=== PATIENT | female | born 1955 | race Caucasian/White ===

== ENCOUNTER 2018-09-21 13:18 | Emergency (ER) | payer OTHER ==
[~2018-09-21] VITALS: Ht 152.4 cm; Wt 48.6 kg
[2018-09-21 14:37] LABS: HEMATOCRIT. 36.9 % (36.0-48.0); HEMOGLOBIN. 12.9 g/dL (12.0-16.0); LYMPHOCYTES % 38.9 % (20.0-50.0); MEAN CORPUSCULAR HEMOGLOBIN 33.4 pg (28.0-32.0); MEAN CORPUSCULAR VOLUME 95.7 fL (81.0-99.0); MEAN PLATELET VOLUME 8.9 fl (7.4-10.4); MONOCYTES % 4.3 % (2.0-8.0); NEUTROPHILS % 50.8 % (40.0-76.0); PLATELET 327 x1000/uL (130-400); RED BLOOD CELL COUNT 3.86 mill/uL (4.2-5.4); RED CELL DISTRIBUTION WIDTH 13.1 % (11.6-14.6)
[2018-09-21 14:44] LABS: CHLORIDE 111 mEq/L (98-107); PROTHROMBIN TIME 10.8 sec (9.6-11.0)
[2018-09-21 14:47] LABS: ETHANOL BLOOD < 10 mg/dL
[2018-09-21 14:50] LABS: LDL CHOLESTEROL 124 mg/dL (5-100)
[2018-09-21] MEDS ORDERED: IOHEXOL-350 100 ML BOTTLE ONE (14:52)
[2018-09-21] MEDS ORDERED: ASPIRIN 325MG TABLET PO ONE (16:30)
[2018-09-21 16:45] VITALS: BP 118/52
== END 2018-09-21 17:24 | disposition left against medical advice (07) ==
LOC: EDSEX 13:18 → ER 13:18 → CANBEDREQ 16:15 → ER 17:24
DX: I63.9 Cerebral infarction, unspecified (principal); I65.1 Occlusion and stenosis of basilar artery; I65.22 Occlusion and stenosis of left carotid artery; R20.0 Anesthesia of skin; E78.00 Pure hypercholesterolemia, unspecified; I10 Essential (primary) hypertension; F17.200 Nicotine dependence, unspecified, uncomplicated; Z90.49 Acquired absence of other specified parts of digestive tract; Z98.890 Other specified postprocedural states
CPT/HCPCS: 36415; 70450; 70496; 70498; 71045; 80053; 80320; 83721; 84484; 85025; 85610; 93005; 99284; Q9967; G0480

== ENCOUNTER 2019-10-10 16:36 | Inpatient (IN) | payer MEDICAID, OTHER ==
[~2019-10-10] VITALS: Ht 152.4 cm; Wt 56.2 kg
[2019-10-10 17:46] LABS: BASOPHILS % 1.1 % (0.0-2.0); EOSINOPHILS % 2.7 % (0.0-5.0); HEMATOCRIT. 41.9 % (36.0-48.0); HEMOGLOBIN. 14.5 g/dL (12.0-16.0); LYMPHOCYTES % 32.7 % (20.0-50.0); MEAN CORPUSCULAR HEMOGLOBIN 32.1 pg (28.0-32.0); MEAN CORPUSCULAR VOLUME 92.8 fL (81.0-99.0); MEAN PLATELET VOLUME 9.4 fl (7.4-10.4); MONOCYTES % 6.1 % (2.0-8.0); NEUTROPHILS % 57.4 % (40.0-76.0); PLATELET 399 x1000/uL (130-400); RED BLOOD CELL COUNT 4.51 mill/uL (4.2-5.4); RED CELL DISTRIBUTION WIDTH 13.9 % (11.6-14.6)
[2019-10-10 17:47] LABS: CHLORIDE 107 mEq/L (98-107)
[2019-10-10 17:52] LABS: ETHANOL BLOOD < 10 mg/dL
[2019-10-10 17:56] LABS: PROTHROMBIN TIME 10.5 sec (9.6-11.0)
[2019-10-10] MEDS ORDERED: HYDR12.54 PO (18:11)
[2019-10-10] MEDS ORDERED: LOSA100T32 MT (18:11)
[2019-10-10] MEDS ORDERED: MELO-106 MT (18:11)
[2019-10-10] MEDS ORDERED: PENT400T16 PO (18:11)
[2019-10-10] MEDS ORDERED: ASPI-1497 MT (18:11)
[2019-10-10] MEDS ORDERED: ACETAMINOPHEN 325MG TABLET PO PRN (19:30)
[2019-10-10] MEDS ORDERED: ONDANSETRON HCL 4MG/2ML INJ IV PRN (19:30)
[2019-10-10] MEDS ORDERED: ASPIRIN 81MG TABLET PO NR (19:30)
[2019-10-10 20:25] VITALS: BP 147/45
[2019-10-10] MEDS: ATORVASTATIN CALCIUM 40MG TABLET PO SCH (22:32)
[2019-10-10] MEDS: ENOXAPARIN 30MG/0.3ML SYR SUBCUT SCH (22:36)
[2019-10-11] VITALS: BP 132/52
[2019-10-11 04:00] VITALS: BP 119/54
[2019-10-11 06:29] LABS: BASOPHILS % 1.8 % (0.0-2.0); EOSINOPHILS % 4.6 % (0.0-5.0); HEMATOCRIT. 36.4 % (36.0-48.0); HEMOGLOBIN. 12.7 g/dL (12.0-16.0); MEAN CORPUSCULAR HEMOGLOBIN 32.2 pg (28.0-32.0); MEAN CORPUSCULAR VOLUME 92.2 fL (81.0-99.0); MEAN PLATELET VOLUME 9.6 fl (7.4-10.4); MONOCYTES % 7.3 % (2.0-8.0); NEUTROPHILS % 47.3 % (40.0-76.0); PLATELET 323 x1000/uL (130-400); RED BLOOD CELL COUNT 3.95 mill/uL (4.2-5.4); RED CELL DISTRIBUTION WIDTH 13.7 % (11.6-14.6)
[2019-10-11 06:39] LABS: CLARITY URINE CLEAR (CLEAR); COLOR URINE YELLOW (YELLOW); KETONES URINE NEGATIVE (NEGATIVE); LEUKOCYTE ESTERASE URINE NEGATIVE (NEGATIVE); NITRITE URINE NEGATIVE (NEGATIVE); OCCULT BLOOD URINE NEGATIVE (NEGATIVE); PROTEIN URINE TRACE (NEGATIVE); SPECIFIC GRAVITY URINE 1.016 (1.005-1.030)
[2019-10-11 07:06] LABS: *AMPHETAMINES SCREEN URINE NEGATIVE (NEGATIVE); *BARBITURATES SCREEN URINE NEGATIVE (NEGATIVE); *BENZODIAZEPINES SCREEN URINE NEGATIVE (NEGATIVE)
[2019-10-11 07:07] LABS: *COCAINE SCREEN URINE NEGATIVE (NEGATIVE); CANNABINOID URINE SCREEN NEGATIVE (NEGATIVE); METHADONE URINE SCREEN NEGATIVE (NEGATIVE); OPIATES URINE SCREEN NEGATIVE (NEGATIVE); PHENCYCLIDINE URINE SCREEN NEGATIVE (NEGATIVE)
[2019-10-11] MEDS ORDERED: PENTOXIFYLLINE 400MG TABLET PO SCH (07:15)
[2019-10-11 07:32] LABS: CHLORIDE 110 mEq/L (98-107)
[2019-10-11 07:47] LABS: CREATINE KINASE MB FRACTION < 1.0 ng/mL (0.5-3.6)
[2019-10-11 07:48] LABS: CREATINE KINASE 31 IU/L (26-192)
[2019-10-11 08:00] VITALS: BP 89/39
[2019-10-11] MEDS ORDERED: MIDODRINE HCL 5MG TABLET PO SCH (08:00)
[2019-10-11] MEDS ORDERED: SODIUM CHLORIDE 0.9% 1000ML BAG (SEPSIS BOLUS) IV ONE (08:00)
[2019-10-11] MEDS ORDERED: SODIUM CHLORIDE 0.9% 500 ML IV ONE ×2 (08:04→12:45)
[2019-10-11] MEDS ORDERED: HYDROCHLOROTHIAZIDE 12.5MG CAPSULE PO SCH (09:00)
[2019-10-11] MEDS ORDERED: LOSARTAN POTASSIUM 100 MG TABLET PO SCH (09:00)
[2019-10-11] MEDS: ENOXAPARIN 30MG/0.3ML SYR SUBCUT SCH (09:12)
[2019-10-11] MEDS: ASPIRIN 81MG TABLET PO SCH (09:12)
[2019-10-11] MEDS: MELOXICAM 7.5MG TABLET PO SCH (09:13)
[2019-10-11 12:00] VITALS: BP 81/43
[2019-10-11] MEDS: SODIUM CHLORIDE 0.9% 1,000 ML IV SCH (12:38)
[2019-10-11] MEDS ORDERED: MIDODRINE HCL 5MG TABLET PO NR ×2 (12:45)
[2019-10-11 16:00] VITALS: BP 93/49
[2019-10-11] MEDS: MIDODRINE HCL 5MG TABLET PO SCH (16:20)
[2019-10-11 20:00] VITALS: BP 94/44
[2019-10-11] MEDS: ATORVASTATIN CALCIUM 40MG TABLET PO SCH (20:53)
[2019-10-12] VITALS (7 sets, daily range): BP systolic 90–104; BP diastolic 33–47
[2019-10-12] MEDS: SODIUM CHLORIDE 0.9% 1,000 ML IV SCH ×2 (02:01→17:29)
[2019-10-12 07:24] LABS: BASOPHILS % 1.4 % (0.0-2.0); EOSINOPHILS % 3.3 % (0.0-5.0); HEMOGLOBIN. 11.4 g/dL (12.0-16.0); LYMPHOCYTES % 36.3 % (20.0-50.0); MEAN CORPUSCULAR HEMOGLOBIN 32.8 pg (28.0-32.0); MEAN CORPUSCULAR VOLUME 94.9 fL (81.0-99.0); MEAN PLATELET VOLUME 9.1 fl (7.4-10.4); MONOCYTES % 5.6 % (2.0-8.0); NEUTROPHILS % 53.4 % (40.0-76.0); PLATELET 279 x1000/uL (130-400); RED BLOOD CELL COUNT 3.48 mill/uL (4.2-5.4); RED CELL DISTRIBUTION WIDTH 13.6 % (11.6-14.6)
[2019-10-12 07:51] LABS: CHLORIDE 116 mEq/L (98-107)
[2019-10-12] MEDS: MELOXICAM 7.5MG TABLET PO SCH (08:54)
[2019-10-12] MEDS: MIDODRINE HCL 5MG TABLET PO SCH ×3 (08:55→17:28)
[2019-10-12] MEDS: ASPIRIN 81MG TABLET PO SCH (08:55)
[2019-10-12] MEDS: ENOXAPARIN 40MG/0.4ML SYR SUBCUT SCH (08:55)
[2019-10-12] MEDS: ATORVASTATIN CALCIUM 40MG TABLET PO SCH (20:43)
[2019-10-13] VITALS: BP 98/41
[2019-10-13 04:00] VITALS: BP 90/46
[2019-10-13] MEDS: SODIUM CHLORIDE 0.9% 1,000 ML IV SCH ×2 (07:54→17:04)
[2019-10-13 08:00] VITALS: BP 92/41
[2019-10-13] MEDS: ASPIRIN 81MG TABLET PO SCH (09:02)
[2019-10-13] MEDS: CLOPIDOGREL 75MG TABLET PO SCH (09:02)
[2019-10-13] MEDS: MELOXICAM 7.5MG TABLET PO SCH (09:02)
[2019-10-13] MEDS: MIDODRINE HCL 5MG TABLET PO SCH ×3 (09:02→17:03)
[2019-10-13] MEDS: ENOXAPARIN 40MG/0.4ML SYR SUBCUT SCH (09:02)
[2019-10-13 12:00] VITALS: BP 110/32
[2019-10-13] MEDS ORDERED: IOHEXOL-350 100 ML BOTTLE ONE (14:40)
[2019-10-13 16:00] VITALS: BP 113/51
[2019-10-13 20:00] VITALS: BP 113/34
[2019-10-13] MEDS: ATORVASTATIN CALCIUM 40MG TABLET PO SCH (20:51)
[2019-10-14] VITALS (8 sets, daily range): BP systolic 80–117; BP diastolic 25–69
[2019-10-14] MEDS: SODIUM CHLORIDE 0.9% 1,000 ML IV SCH (04:21)
[2019-10-14 06:44] LABS: CHLORIDE 115 mEq/L (98-107)
[2019-10-14 06:48] LABS: BASOPHILS % 0.8 % (0.0-2.0); EOSINOPHILS % 2.2 % (0.0-5.0); HEMATOCRIT. 32.6 % (36.0-48.0); HEMOGLOBIN. 11.4 g/dL (12.0-16.0); LYMPHOCYTES % 28.8 % (20.0-50.0); MEAN CORPUSCULAR VOLUME 91.6 fL (81.0-99.0); MONOCYTES % 6.5 % (2.0-8.0); NEUTROPHILS % 61.7 % (40.0-76.0); PLATELET 265 x1000/uL (130-400); RED BLOOD CELL COUNT 3.56 mill/uL (4.2-5.4); RED CELL DISTRIBUTION WIDTH 13.5 % (11.6-14.6)
[2019-10-14] MEDS: ENOXAPARIN 40MG/0.4ML SYR SUBCUT SCH (08:02)
[2019-10-14] MEDS: CLOPIDOGREL 75MG TABLET PO SCH (08:02)
[2019-10-14] MEDS ORDERED: POTASSIUM CHLORIDE 20MEQ TABLET SR PO NR (09:00)
[2019-10-14] MEDS: ASPIRIN 81MG TABLET PO SCH (09:59)
[2019-10-14] MEDS: MIDODRINE HCL 5MG TABLET PO SCH ×3 (09:59→17:34)
[2019-10-14] MEDS ORDERED: MAGNESIUM 2 G PREMIX 50 ML IV NR (10:00)
[2019-10-14] MEDS: MELOXICAM 15 MG TABLET PO SCH (12:37)
[2019-10-14] MEDS: DEXT 5%/0.45% NACL 1000ML 1,000 ML IV SCH (12:38)
[2019-10-14] MEDS: ATORVASTATIN CALCIUM 40MG TABLET PO SCH (21:09)
[2019-10-15] VITALS (12 sets, daily range): BP systolic 85–151; BP diastolic 42–64
[2019-10-15] MEDS: DEXT 5%/0.45% NACL 1000ML 1,000 ML IV SCH ×3 (01:12→19:18)
[2019-10-15] MEDS: MELOXICAM 15 MG TABLET PO SCH (09:17)
[2019-10-15] MEDS: CLOPIDOGREL 75MG TABLET PO SCH (09:18)
[2019-10-15] MEDS: MIDODRINE HCL 5MG TABLET PO SCH ×3 (09:18→15:36)
[2019-10-15] MEDS: ASPIRIN 81MG TABLET PO SCH (09:18)
[2019-10-15] MEDS: ENOXAPARIN 40MG/0.4ML SYR SUBCUT SCH (09:19)
[2019-10-15 10:29] LABS: CHLORIDE 114 mEq/L (98-107)
[2019-10-15] MEDS ORDERED: BACITRACIN 15GM TUBE TOP ONE (12:38)
[2019-10-15] MEDS ORDERED: HEPARIN SODIUM 1,000 UNIT/1ML VIAL IV ONE (12:39)
[2019-10-15] MEDS ORDERED: BUPIVACAINE HCL/PF 0.5% (5MG/ML) 10ML ONE (12:39)
[2019-10-15] MEDS ORDERED: LIDOCAINE HCL 1% 20ML VIAL (Pyxis) INJ ONE (12:39)
[2019-10-15] MEDS ORDERED: THROMBIN (BOVINE) 5000 UNITS/VIAL TOP ONE (12:40)
[2019-10-15] MEDS ORDERED: BACITRACIN 50,000 UNITS/VIAL ONE (12:40)
[2019-10-15] MEDS ORDERED: FENTANYL CITRATE/PF 50MCG/ML 2ML VIAL ONE (13:00)
[2019-10-15] MEDS ORDERED: NEOSTIGMINE METHYLSULFATE 1MG/ML 10 ML VIAL ONE (13:00)
[2019-10-15] MEDS ORDERED: GLYCOPYRROLATE 0.2 MG/ML 2ML VIAL ONE ×2 (13:01→14:44)
[2019-10-15] MEDS ORDERED: MIDAZOLAM HCL 2 MG/2 ML VIAL ONE (13:01)
[2019-10-15] MEDS ORDERED: ROCURONIUM BROMIDE 10MG/ML VIAL 5ML IV ONE (13:01)
[2019-10-15] MEDS ORDERED: PROPOFOL 200MG/20ML VIAL IV ONE (13:01)
[2019-10-15] MEDS ORDERED: DEXAMETHASONE 4MG/ML 1ML VIAL ONE (13:02)
[2019-10-15] MEDS ORDERED: ONDANSETRON HCL 4MG/2ML INJ ONE (13:02)
[2019-10-15] MEDS ORDERED: NICARDIPINE 50 MG in SODIUM CHLORIDE 0.9% 230 ML IV PRN (13:30)
[2019-10-15] MEDS ORDERED: HYDROMORPHONE HCL/PF 2MG/ML CPJ IV PRN (14:00)
[2019-10-15] MEDS ORDERED: LABETALOL 5MG/ML SYR 20 MG/4 ML SYRINGE IV PRN (14:00)
[2019-10-15] MEDS ORDERED: ONDANSETRON HCL 4MG/2ML INJ IV PRN (14:00)
[2019-10-15] MEDS ORDERED: MEPERIDINE HCL/PF 25MG/ML CPJ IV PRN (14:00)
[2019-10-15] MEDS ORDERED: SODIUM CHLORIDE 0.9% 10ML VIAL ONE (14:50)
[2019-10-15] MEDS ORDERED: HEPARIN 1000 UNITS/ML 10ML ONE (14:50)
[2019-10-15] MEDS ORDERED: LABETALOL HCL 5MG/ML VIAL 20ML IV ONE (14:50)
[2019-10-15] MEDS ORDERED: CEFAZOLIN SODIUM 1000MG/VIAL ONE (14:50)
[2019-10-15] MEDS ORDERED: LIDOCAINE HCL/PF 1% 10 MG/ML 5ML VIAL ONE (14:50)
[2019-10-15] MEDS ORDERED: HYDRALAZINE 20MG/ML VIAL ONE (14:55)
[2019-10-15] MEDS: MORPHINE SULFATE 4 MG/ML CPJ (NOT FOR IM USE) IV PRN ×2 (16:17→22:39)
[2019-10-15] MEDS: ATORVASTATIN CALCIUM 40MG TABLET PO SCH (21:53)
[2019-10-16] VITALS (45 sets, daily range): BP systolic 79–128; BP diastolic 36–93
[2019-10-16] MEDS: DEXT 5%/0.45% NACL 1000ML 1,000 ML IV SCH ×2 (00:45→06:37)
[2019-10-16 00:52] LABS: HEMATOCRIT 33.9 % (36.0-48.0); HEMOGLOBIN 11.6 g/dL (12.0-16.0); MEAN CORPUSCULAR HEMOGLOBIN 32.1 pg (28.0-32.0); MEAN CORPUSCULAR VOLUME 93.7 fL (81.0-99.0); PLATELET 257 x1000/uL (130-400); RED BLOOD CELL COUNT 3.61 mill/uL (4.2-5.4); RED CELL DISTRIBUTION WIDTH 13.5 % (11.6-14.6)
[2019-10-16 05:52] LABS: BASOPHILS % 0.1 % (0.0-2.0); HEMATOCRIT. 32.4 % (36.0-48.0); HEMOGLOBIN. 11.3 g/dL (12.0-16.0); LYMPHOCYTES % 7.9 % (20.0-50.0); MEAN CORPUSCULAR HEMOGLOBIN 32.6 pg (28.0-32.0); MEAN CORPUSCULAR VOLUME 93.4 fL (81.0-99.0); MONOCYTES % 3.1 % (2.0-8.0); NEUTROPHILS % 88.9 % (40.0-76.0); PLATELET 252 x1000/uL (130-400); RED BLOOD CELL COUNT 3.47 mill/uL (4.2-5.4); RED CELL DISTRIBUTION WIDTH 13.6 % (11.6-14.6)
[2019-10-16 05:58] LABS: CHLORIDE 111 mEq/L (98-107)
[2019-10-16] MEDS: MELOXICAM 15 MG TABLET PO SCH (09:00)
[2019-10-16] MEDS: MIDODRINE HCL 5MG TABLET PO SCH ×3 (09:00→16:21)
[2019-10-17] VITALS (31 sets, daily range): BP systolic 87–125; BP diastolic 27–75
[2019-10-17] MEDS: ATORVASTATIN CALCIUM 40MG TABLET PO SCH ×2 (00:17→20:28)
[2019-10-17 05:20] LABS: BASOPHILS % 0.4 % (0.0-2.0); HEMATOCRIT. 27.5 % (36.0-48.0); HEMOGLOBIN. 9.6 g/dL (12.0-16.0); LYMPHOCYTES % 33.4 % (20.0-50.0); MEAN CORPUSCULAR HEMOGLOBIN 32.6 pg (28.0-32.0); MEAN CORPUSCULAR VOLUME 93.3 fL (81.0-99.0); MEAN PLATELET VOLUME 10.1 fl (7.4-10.4); MONOCYTES % 7.9 % (2.0-8.0); NEUTROPHILS % 57.3 % (40.0-76.0); PLATELET 219 x1000/uL (130-400); RED BLOOD CELL COUNT 2.95 mill/uL (4.2-5.4); RED CELL DISTRIBUTION WIDTH 13.9 % (11.6-14.6)
[2019-10-17 05:32] LABS: CHLORIDE 115 mEq/L (98-107)
[2019-10-17] MEDS: DEXT 5%/0.45% NACL 1000ML 1,000 ML IV SCH ×2 (06:24→18:09)
[2019-10-17] MEDS: CLOPIDOGREL 75MG TABLET PO SCH (08:13)
[2019-10-17] MEDS: MELOXICAM 15 MG TABLET PO SCH (08:13)
[2019-10-17] MEDS: MIDODRINE HCL 5MG TABLET PO SCH ×3 (08:14→18:08)
[2019-10-18] VITALS (14 sets, daily range): BP systolic 97–168; BP diastolic 40–65
[2019-10-18 05:42] LABS: CHLORIDE 116 mEq/L (98-107)
[2019-10-18 05:43] LABS: BASOPHILS % 0.7 % (0.0-2.0); EOSINOPHILS % 1.7 % (0.0-5.0); HEMATOCRIT. 26.5 % (36.0-48.0); HEMOGLOBIN. 9.2 g/dL (12.0-16.0); LYMPHOCYTES % 27.2 % (20.0-50.0); MEAN CORPUSCULAR HEMOGLOBIN 32.7 pg (28.0-32.0); MEAN CORPUSCULAR VOLUME 93.8 fL (81.0-99.0); MEAN PLATELET VOLUME 10.3 fl (7.4-10.4); MONOCYTES % 7.9 % (2.0-8.0); NEUTROPHILS % 62.5 % (40.0-76.0); PLATELET 218 x1000/uL (130-400); RED BLOOD CELL COUNT 2.83 mill/uL (4.2-5.4)
[2019-10-18] MEDS: DEXT 5%/0.45% NACL 1000ML 1,000 ML IV SCH ×2 (06:22→18:24)
[2019-10-18] MEDS: MELOXICAM 15 MG TABLET PO SCH (08:24)
[2019-10-18] MEDS: CLOPIDOGREL 75MG TABLET PO SCH (08:24)
[2019-10-18] MEDS: MIDODRINE HCL 5MG TABLET PO SCH ×3 (08:25→17:38)
[2019-10-18] MEDS: ATORVASTATIN CALCIUM 40MG TABLET PO SCH (20:40)
[2019-10-19] VITALS: BP 106/56
[2019-10-19 04:00] VITALS: BP 102/59
[2019-10-19 07:28] LABS: BASOPHILS % 0.7 % (0.0-2.0); EOSINOPHILS % 3.3 % (0.0-5.0); HEMATOCRIT. 25.9 % (36.0-48.0); HEMOGLOBIN. 8.9 g/dL (12.0-16.0); LYMPHOCYTES % 28.4 % (20.0-50.0); MEAN CORPUSCULAR HEMOGLOBIN 32.3 pg (28.0-32.0); MEAN CORPUSCULAR VOLUME 94.1 fL (81.0-99.0); MEAN PLATELET VOLUME 10.7 fl (7.4-10.4); MONOCYTES % 5.6 % (2.0-8.0); PLATELET 216 x1000/uL (130-400); RED BLOOD CELL COUNT 2.75 mill/uL (4.2-5.4); RED CELL DISTRIBUTION WIDTH 13.8 % (11.6-14.6)
[2019-10-19 07:59] LABS: CHLORIDE 115 mEq/L (98-107)
[2019-10-19 08:00] VITALS: BP_SYST 117; BP_SYST 172; BP_DIAS 68; BP_DIAS 89
[2019-10-19] MEDS: MIDODRINE HCL 5MG TABLET PO SCH ×3 (08:52→16:42)
[2019-10-19] MEDS: MELOXICAM 15 MG TABLET PO SCH (08:53)
[2019-10-19] MEDS: CLOPIDOGREL 75MG TABLET PO SCH (08:53)
[2019-10-19] MEDS: DEXT 5%/0.45% NACL 1000ML 1,000 ML IV SCH (08:54)
[2019-10-19 12:00] VITALS: BP 112/55
[2019-10-19 16:00] VITALS: BP 120/58
[2019-10-19 20:00] VITALS: BP 99/58
[2019-10-19] MEDS: ATORVASTATIN CALCIUM 40MG TABLET PO SCH (20:09)
[2019-10-20] VITALS: BP 102/53
[2019-10-20] MEDS: DEXT 5%/0.45% NACL 1000ML 1,000 ML IV SCH ×2 (03:58→11:40)
[2019-10-20 04:00] VITALS: BP 118/51
[2019-10-20 07:29] LABS: BASOPHILS % 0.9 % (0.0-2.0); EOSINOPHILS % 4.9 % (0.0-5.0); HEMATOCRIT. 25.6 % (36.0-48.0); LYMPHOCYTES % 25.5 % (20.0-50.0); MEAN CORPUSCULAR VOLUME 93.6 fL (81.0-99.0); MEAN PLATELET VOLUME 10.4 fl (7.4-10.4); MONOCYTES % 5.7 % (2.0-8.0); PLATELET 232 x1000/uL (130-400); RED BLOOD CELL COUNT 2.73 mill/uL (4.2-5.4); RED CELL DISTRIBUTION WIDTH 13.9 % (11.6-14.6)
[2019-10-20 08:29] VITALS: BP 108/62
[2019-10-20 08:39] LABS: CHLORIDE 114 mEq/L (98-107)
[2019-10-20] MEDS: CLOPIDOGREL 75MG TABLET PO SCH (09:30)
[2019-10-20] MEDS: MIDODRINE HCL 5MG TABLET PO SCH ×2 (09:30→12:45)
[2019-10-20] MEDS: MELOXICAM 15 MG TABLET PO SCH (09:31)
[2019-10-20] MEDS ORDERED: POTASSIUM CHLORIDE 20MEQ TABLET SR PO SCH (10:00)
[2019-10-20 12:19] VITALS: BP 117/57
[2019-10-20 15:02] VITALS: BP 103/61
[2019-10-20 15:54] VITALS: BP 103/61
== END 2019-10-20 16:45 | DRG 24 ==
LOC: ER 16:36 → EDBEDREQ 17:27 → 5WST 18:58 → EDBEDREQ 19:14 → ENRESERV 19:47 → CVICU 10-15 15:31 → 6WST 10-18 09:12
PROVIDERS: ADMIT Internal Medicine; ATTEND Internal Medicine
PROC: 03CL0ZZ Extirpation of Matter from Left Internal Carotid Artery, Open Approach (ICD-10-PCS; principal; 2019-10-15)
DX: I63.232 Cerebral infarction due to unspecified occlusion or stenosis of left carotid arteries (principal); J84.9 Interstitial pulmonary disease, unspecified; R47.01 Aphasia; E78.00 Pure hypercholesterolemia, unspecified; E78.5 Hyperlipidemia, unspecified; G93.41 Metabolic encephalopathy; F17.210 Nicotine dependence, cigarettes, uncomplicated; I10 Essential (primary) hypertension; Z96.659 Presence of unspecified artificial knee joint; E87.6 Hypokalemia; I70.8 Atherosclerosis of other arteries; J44.9 Chronic obstructive pulmonary disease, unspecified; R47.1 Dysarthria and anarthria; I95.9 Hypotension, unspecified; R00.1 Bradycardia, unspecified; E83.42 Hypomagnesemia; Z86.73 Personal history of transient ischemic attack (TIA), and cerebral infarction without residual deficits; Z90.49 Acquired absence of other specified parts of digestive tract; Z71.6 Tobacco abuse counseling
CPT/HCPCS: 36415; 70498; 70551; 71045; 80048; 80053; 80061; 80305; 80320; 81003; 82140; 82550; 82553; 82962; 83735; 83880; 84145; 84443; 84484; 85025; 85027; 86850; 86900; 88304; 88311; 92610; 93005; 93306; 93880; 93970; 95816; 96372; 97110; 97116; 97162; 97164; 97166; 97168; 97530; 99285; J0360; J0690; J1100; J1644; J1650; J2250; J2270; J2405; J2704; J2710; J3010; J3475; J3490; J7030; Q9967; G0480

== ENCOUNTER 2019-10-20 16:46 | Inpatient (IN) | payer MEDICAID ==
[~2019-10-20] VITALS: Ht 152.4 cm; Wt 54.9 kg
[2019-10-20 16:46] VITALS: BP_SYST 112; BP_DIAS 49; BP_DIAS 74
[~2019-10-20 16:46] MED LIST: ASPI-1497 MT; HYDR12.54 PO; LOSA100T32 MT; MELO-106 MT; PENT400T16 PO
[2019-10-20] MEDS ORDERED: ONDANSETRON HCL 4MG TABLET PO PRN (18:15)
[2019-10-20] MEDS: MIDODRINE HCL 5MG TABLET PO SCH (18:30)
[2019-10-20 20:00] VITALS: BP 132/61
[2019-10-20] MEDS: ATORVASTATIN CALCIUM 40MG TABLET PO SCH (20:57)
[2019-10-21 08:00] VITALS: BP 104/46
[2019-10-21] MEDS ORDERED: PNEUMOCOCCAL 23-VAL P-SAC VAC 0.5 ML IM ONE (08:00)
[2019-10-21] MEDS ORDERED: ENOXAPARIN 40MG/0.4ML SYR SUBCUT SCH (09:00)
[2019-10-21] MEDS: POTASSIUM CHLORIDE 20MEQ TABLET SR PO SCH (09:00)
[2019-10-21] MEDS: MIDODRINE HCL 5MG TABLET PO SCH ×2 (09:15→12:52)
[2019-10-21] MEDS: CLOPIDOGREL 75MG TABLET PO SCH (09:15)
[2019-10-21] MEDS: ASPIRIN 81MG TABLET PO SCH (09:15)
[2019-10-21] MEDS: MELOXICAM 7.5MG TABLET PO SCH (10:30)
[2019-10-21 10:51] LABS: HEMATOCRIT 27.8 % (36.0-48.0); HEMOGLOBIN 9.8 g/dL (12.0-16.0); MEAN CORPUSCULAR HEMOGLOBIN 32.8 pg (28.0-32.0); MEAN CORPUSCULAR VOLUME 93.3 fL (81.0-99.0); PLATELET 281 x1000/uL (130-400); RED BLOOD CELL COUNT 2.98 mill/uL (4.2-5.4); RED CELL DISTRIBUTION WIDTH 13.8 % (11.6-14.6)
[2019-10-21 11:46] LABS: CHLORIDE 111 mEq/L (98-107)
[2019-10-21] MEDS ORDERED: LACTULOSE 20G/30ML UDC PO PRN (12:15)
[2019-10-21] MEDS ORDERED: NA PHOS,M-B/NA PHOS,DI-BA ENEMA 118ML PR PRN (12:15)
[2019-10-21] MEDS: BISACODYL 5MG TABLET PO PRN (14:52)
[2019-10-21 20:00] VITALS: BP 103/47
[2019-10-21] MEDS: ATORVASTATIN CALCIUM 40MG TABLET PO SCH (23:12)
[2019-10-22 07:42] VITALS: BP 96/32
[2019-10-22] MEDS: MELOXICAM 7.5MG TABLET PO SCH (08:03)
[2019-10-22] MEDS: MIDODRINE HCL 5MG TABLET PO SCH ×3 (08:03→16:00)
[2019-10-22] MEDS: ASPIRIN 81MG TABLET PO SCH (08:03)
[2019-10-22] MEDS: POTASSIUM CHLORIDE 20MEQ TABLET SR PO SCH (08:03)
[2019-10-22] MEDS: CLOPIDOGREL 75MG TABLET PO SCH (08:03)
[2019-10-22 08:30] VITALS: BP 111/34
[2019-10-22 20:00] VITALS: BP 108/62
[2019-10-22] MEDS: ATORVASTATIN CALCIUM 40MG TABLET PO SCH (22:13)
[2019-10-23] MEDS: MELOXICAM 7.5MG TABLET PO SCH (08:08)
[2019-10-23] MEDS: POTASSIUM CHLORIDE 20MEQ TABLET SR PO SCH (08:08)
[2019-10-23] MEDS: ASPIRIN 81MG TABLET PO SCH (08:08)
[2019-10-23] MEDS: CLOPIDOGREL 75MG TABLET PO SCH (08:09)
[2019-10-23] MEDS: MIDODRINE HCL 5MG TABLET PO SCH ×3 (08:09→16:27)
[2019-10-23 08:26] VITALS: BP 97/41
[2019-10-23 16:27] VITALS: BP_SYST 149; BP_SYST 205; BP_DIAS 119; BP_DIAS 60
[2019-10-23] MEDS ORDERED: CLONIDINE 0.1MG TABLET PO PRN (16:30)
[2019-10-23 17:38] VITALS: BP_SYST 100; BP_SYST 143; BP_DIAS 24; BP_DIAS 51
[2019-10-23 20:00] VITALS: BP 105/45
[2019-10-23] MEDS: ATORVASTATIN CALCIUM 40MG TABLET PO SCH (20:33)
[2019-10-24 08:00] VITALS: BP 142/54
[2019-10-24] MEDS: MIDODRINE HCL 5MG TABLET PO SCH (09:00)
[2019-10-24] MEDS: MELOXICAM 7.5MG TABLET PO SCH (09:34)
[2019-10-24] MEDS: CLOPIDOGREL 75MG TABLET PO SCH (09:34)
[2019-10-24] MEDS: POTASSIUM CHLORIDE 20MEQ TABLET SR PO SCH (09:34)
[2019-10-24] MEDS: ASPIRIN 81MG TABLET PO SCH (09:35)
[2019-10-24] MEDS: ENOXAPARIN 40MG/0.4ML SYR SUBCUT SCH (09:37)
[2019-10-24] MEDS: AMLODIPINE 2.5MG TABLET PO SCH (10:45)
[2019-10-24 11:40] VITALS: BP 147/46
[2019-10-24] MEDS: LOSARTAN POTASSIUM 25 MG TABLET PO SCH (11:44)
[2019-10-24 20:00] VITALS: BP 101/50
[2019-10-24] MEDS: ATORVASTATIN CALCIUM 40MG TABLET PO SCH (20:49)
[2019-10-25] MEDS: BISACODYL 5MG TABLET PO PRN (06:18)
[2019-10-25 06:47] LABS: BASOPHILS % 1.4 % (0.0-2.0); HEMATOCRIT. 29.5 % (36.0-48.0); HEMOGLOBIN. 10.1 g/dL (12.0-16.0); LYMPHOCYTES % 30.2 % (20.0-50.0); MEAN CORPUSCULAR VOLUME 93.7 fL (81.0-99.0); MEAN PLATELET VOLUME 10.1 fl (7.4-10.4); MONOCYTES % 7.4 % (2.0-8.0); PLATELET 348 x1000/uL (130-400); RED BLOOD CELL COUNT 3.14 mill/uL (4.2-5.4); RED CELL DISTRIBUTION WIDTH 13.9 % (11.6-14.6)
[2019-10-25 08:19] VITALS: BP 97/42
[2019-10-25] MEDS: AMLODIPINE 2.5MG TABLET PO SCH (08:20)
[2019-10-25] MEDS: LOSARTAN POTASSIUM 25 MG TABLET PO SCH (08:20)
[2019-10-25] MEDS: MELOXICAM 7.5MG TABLET PO SCH (09:10)
[2019-10-25] MEDS: ENOXAPARIN 40MG/0.4ML SYR SUBCUT SCH (09:10)
[2019-10-25] MEDS: POTASSIUM CHLORIDE 20MEQ TABLET SR PO SCH (09:11)
[2019-10-25] MEDS: ASPIRIN 81MG TABLET PO SCH (09:11)
[2019-10-25] MEDS: CLOPIDOGREL 75MG TABLET PO SCH (09:11)
[2019-10-25] MEDS ORDERED: MELOXICAM 7.5MG TABLET PO PRN (09:30)
[2019-10-25 20:00] VITALS: BP 108/49
[2019-10-25] MEDS: ATORVASTATIN CALCIUM 40MG TABLET PO SCH (20:15)
[2019-10-26 06:29] LABS: EOSINOPHILS % 3.6 % (0.0-5.0); HEMATOCRIT. 31.2 % (36.0-48.0); HEMOGLOBIN. 10.7 g/dL (12.0-16.0); LYMPHOCYTES % 28.4 % (20.0-50.0); MEAN CORPUSCULAR VOLUME 93.4 fL (81.0-99.0); MEAN PLATELET VOLUME 9.8 fl (7.4-10.4); MONOCYTES % 7.1 % (2.0-8.0); NEUTROPHILS % 59.9 % (40.0-76.0); PLATELET 353 x1000/uL (130-400); RED BLOOD CELL COUNT 3.34 mill/uL (4.2-5.4); RED CELL DISTRIBUTION WIDTH 13.9 % (11.6-14.6)
[2019-10-26 07:05] LABS: FOLIC ACID (FOLATE) SERUM 18.1 ng/mL (>5.38)
[2019-10-26 07:38] VITALS: BP 138/69
[2019-10-26] MEDS: ASPIRIN 81MG TABLET PO SCH (08:35)
[2019-10-26] MEDS: ENOXAPARIN 40MG/0.4ML SYR SUBCUT SCH (08:35)
[2019-10-26] MEDS: LOSARTAN POTASSIUM 25 MG TABLET PO SCH (08:35)
[2019-10-26] MEDS: AMLODIPINE 2.5MG TABLET PO SCH (08:36)
[2019-10-26] MEDS: CLOPIDOGREL 75MG TABLET PO SCH (08:36)
[2019-10-26 11:45] LABS: CREATINE KINASE 32 IU/L (26-192)
[2019-10-26] MEDS: SODIUM CHLORIDE 0.9% 1,000 ML IV SCH (12:35)
[2019-10-26 20:00] VITALS: BP 122/60
[2019-10-26] MEDS: ATORVASTATIN CALCIUM 40MG TABLET PO SCH (20:47)
[2019-10-26] MEDS: ACETAMINOPHEN 325MG TABLET PO PRN (21:03)
[2019-10-26] MEDS: IRON SUCROSE COMPLEX 200 MG in SODIUM CHLORIDE 0.9% 100 ML IV SCH (21:04)
[2019-10-27] MEDS: SODIUM CHLORIDE 0.9% 1,000 ML IV SCH ×2 (03:27→20:31)
[2019-10-27 06:54] LABS: BASOPHILS % 0.9 % (0.0-2.0); EOSINOPHILS % 3.5 % (0.0-5.0); HEMATOCRIT. 30.9 % (36.0-48.0); HEMOGLOBIN. 10.3 g/dL (12.0-16.0); LYMPHOCYTES % 20.7 % (20.0-50.0); MEAN CORPUSCULAR HEMOGLOBIN 31.4 pg (28.0-32.0); MEAN PLATELET VOLUME 10.3 fl (7.4-10.4); MONOCYTES % 6.7 % (2.0-8.0); NEUTROPHILS % 68.2 % (40.0-76.0); PLATELET 353 x1000/uL (130-400); RED BLOOD CELL COUNT 3.29 mill/uL (4.2-5.4); RED CELL DISTRIBUTION WIDTH 13.8 % (11.6-14.6)
[2019-10-27 07:54] VITALS: BP 140/47
[2019-10-27] MEDS: AMLODIPINE 2.5MG TABLET PO SCH (08:44)
[2019-10-27] MEDS: CLOPIDOGREL 75MG TABLET PO SCH (08:44)
[2019-10-27] MEDS: ASPIRIN 81MG TABLET PO SCH (08:45)
[2019-10-27] MEDS: ENOXAPARIN 40MG/0.4ML SYR SUBCUT SCH (08:47)
[2019-10-27] MEDS: BISACODYL 5MG TABLET PO PRN (17:22)
[2019-10-27 20:00] VITALS: BP 100/51
[2019-10-27] MEDS: ATORVASTATIN CALCIUM 40MG TABLET PO SCH (21:35)
[2019-10-27] MEDS: IRON SUCROSE COMPLEX 200 MG in SODIUM CHLORIDE 0.9% 100 ML IV SCH (22:25)
[2019-10-28 08:30] VITALS: BP 120/61
[2019-10-28] MEDS: ASPIRIN 81MG TABLET PO SCH (11:47)
[2019-10-28] MEDS: AMLODIPINE 2.5MG TABLET PO SCH ×2 (11:47→20:59)
[2019-10-28] MEDS: ENOXAPARIN 40MG/0.4ML SYR SUBCUT SCH (11:48)
[2019-10-28] MEDS: CLOPIDOGREL 75MG TABLET PO SCH (11:48)
[2019-10-28 20:00] VITALS: BP 109/58
[2019-10-28] MEDS: ATORVASTATIN CALCIUM 40MG TABLET PO SCH (20:59)
[2019-10-28] MEDS: IRON SUCROSE COMPLEX 200 MG in SODIUM CHLORIDE 0.9% 100 ML IV SCH (21:10)
[2019-10-29 06:18] LABS: BASOPHILS % 1.3 % (0.0-2.0); EOSINOPHILS % 4.5 % (0.0-5.0); HEMATOCRIT. 28.5 % (36.0-48.0); HEMOGLOBIN. 9.6 g/dL (12.0-16.0); LYMPHOCYTES % 29.9 % (20.0-50.0); MEAN CORPUSCULAR HEMOGLOBIN 31.6 pg (28.0-32.0); MEAN CORPUSCULAR VOLUME 93.4 fL (81.0-99.0); MEAN PLATELET VOLUME 10.3 fl (7.4-10.4); MONOCYTES % 7.3 % (2.0-8.0); PLATELET 326 x1000/uL (130-400); RED BLOOD CELL COUNT 3.05 mill/uL (4.2-5.4); RED CELL DISTRIBUTION WIDTH 13.8 % (11.6-14.6)
[2019-10-29 07:11] LABS: CHLORIDE 112 mEq/L (98-107)
[2019-10-29 08:02] VITALS: BP 139/45
[2019-10-29] MEDS: AMLODIPINE 2.5MG TABLET PO SCH ×2 (10:49→20:59)
[2019-10-29] MEDS: ASPIRIN 81MG TABLET PO SCH (10:49)
[2019-10-29] MEDS: CLOPIDOGREL 75MG TABLET PO SCH (10:50)
[2019-10-29] MEDS: ENOXAPARIN 40MG/0.4ML SYR SUBCUT SCH (10:51)
[2019-10-29 20:00] VITALS: BP 92/45
[2019-10-29] MEDS: ATORVASTATIN CALCIUM 40MG TABLET PO SCH (20:58)
[2019-10-30 08:00] VITALS: BP 77/37
[2019-10-30] MEDS: CLOPIDOGREL 75MG TABLET PO SCH (08:43)
[2019-10-30] MEDS: ASPIRIN 81MG TABLET PO SCH (08:43)
[2019-10-30] MEDS: ENOXAPARIN 40MG/0.4ML SYR SUBCUT SCH (08:47)
[2019-10-30] MEDS: AMLODIPINE 2.5MG TABLET PO SCH ×2 (08:47→20:30)
[2019-10-30 20:00] VITALS: BP 167/45
[2019-10-30] MEDS: ATORVASTATIN CALCIUM 40MG TABLET PO SCH (20:29)
[2019-10-30 20:30] VITALS: BP 152/56
[2019-10-31 06:36] LABS: BASOPHILS % 1.2 % (0.0-2.0); EOSINOPHILS % 3.4 % (0.0-5.0); HEMATOCRIT. 28.6 % (36.0-48.0); HEMOGLOBIN. 10.1 g/dL (12.0-16.0); LYMPHOCYTES % 31.3 % (20.0-50.0); MEAN CORPUSCULAR HEMOGLOBIN 32.7 pg (28.0-32.0); MEAN PLATELET VOLUME 10.7 fl (7.4-10.4); MONOCYTES % 7.6 % (2.0-8.0); NEUTROPHILS % 56.5 % (40.0-76.0); PLATELET 326 x1000/uL (130-400); RED BLOOD CELL COUNT 3.08 mill/uL (4.2-5.4); RED CELL DISTRIBUTION WIDTH 14.1 % (11.6-14.6)
[2019-10-31 06:52] LABS: CHLORIDE 109 mEq/L (98-107)
[2019-10-31 07:46] VITALS: BP 97/41
[2019-10-31] MEDS: AMLODIPINE 2.5MG TABLET PO SCH ×2 (09:00→21:16)
[2019-10-31] MEDS: ASPIRIN 81MG TABLET PO SCH (09:53)
[2019-10-31] MEDS: CLOPIDOGREL 75MG TABLET PO SCH (09:53)
[2019-10-31] MEDS: ENOXAPARIN 40MG/0.4ML SYR SUBCUT SCH (09:55)
[2019-10-31 20:13] VITALS: BP 145/58
[2019-10-31] MEDS: ATORVASTATIN CALCIUM 40MG TABLET PO SCH (21:16)
[2019-10-31] MEDS: ACETAMINOPHEN 325MG TABLET PO PRN (21:16)
[2019-11-01] MEDS: BISACODYL 5MG TABLET PO PRN (05:02)
[2019-11-01 08:00] VITALS: BP 118/82
[2019-11-01] MEDS: ENOXAPARIN 40MG/0.4ML SYR SUBCUT SCH (09:24)
[2019-11-01] MEDS: CLOPIDOGREL 75MG TABLET PO SCH (09:24)
[2019-11-01] MEDS: ASPIRIN 81MG TABLET PO SCH (09:24)
[2019-11-01] MEDS: AMLODIPINE 2.5MG TABLET PO SCH ×2 (09:24→20:51)
[2019-11-01 20:00] VITALS: BP 132/61
[2019-11-01] MEDS: ATORVASTATIN CALCIUM 40MG TABLET PO SCH (20:50)
[2019-11-01] MEDS: ACETAMINOPHEN 325MG TABLET PO PRN (20:51)
[2019-11-01 22:36] VITALS: BP 137/77
[2019-11-02 08:20] VITALS: BP 122/63
[2019-11-02] MEDS: ASPIRIN 81MG TABLET PO SCH (08:35)
[2019-11-02] MEDS: CLOPIDOGREL 75MG TABLET PO SCH (08:35)
[2019-11-02] MEDS: ENOXAPARIN 40MG/0.4ML SYR SUBCUT SCH (08:35)
[2019-11-02] MEDS: AMLODIPINE 2.5MG TABLET PO SCH ×2 (08:35→21:41)
[2019-11-02 20:00] VITALS: BP 115/47
[2019-11-02] MEDS: ATORVASTATIN CALCIUM 40MG TABLET PO SCH (21:40)
[2019-11-03 06:09] LABS: CHLORIDE 110 mEq/L (98-107)
[2019-11-03 08:39] VITALS: BP 139/77
[2019-11-03] MEDS ORDERED: LIP40 PO (08:55)
[2019-11-03] MEDS ORDERED: CLOP75TA15 PO (08:55)
[2019-11-03] MEDS: ASPIRIN 81MG TABLET PO SCH (08:58)
[2019-11-03] MEDS: CLOPIDOGREL 75MG TABLET PO SCH (08:58)
[2019-11-03] MEDS: AMLODIPINE 2.5MG TABLET PO SCH (08:58)
[2019-11-03] MEDS: ENOXAPARIN 40MG/0.4ML SYR SUBCUT SCH (08:59)
[2019-11-03 13:34] VITALS: BP 98/61
== END 2019-11-03 14:30 | disposition home health service (06) | DRG 45 ==
PROVIDERS: ADMIT Psychiatry & Neurology Neurology; ATTEND Internal Medicine
DX: I63.512 Cerebral infarction due to unspecified occlusion or stenosis of left middle cerebral artery (principal); E78.5 Hyperlipidemia, unspecified; R00.1 Bradycardia, unspecified; I95.9 Hypotension, unspecified; J44.9 Chronic obstructive pulmonary disease, unspecified; J84.9 Interstitial pulmonary disease, unspecified; D64.9 Anemia, unspecified; E87.6 Hypokalemia; E83.42 Hypomagnesemia; I10 Essential (primary) hypertension; N17.9 Acute kidney failure, unspecified; I82.B12 Acute embolism and thrombosis of left subclavian vein; I70.8 Atherosclerosis of other arteries; K59.09 Other constipation; F17.210 Nicotine dependence, cigarettes, uncomplicated; R47.01 Aphasia; Z71.6 Tobacco abuse counseling; Z79.82 Long term (current) use of aspirin; Z79.899 Other long term (current) drug therapy
CPT/HCPCS: 36415; 76770; 80048; 82550; 82607; 82728; 82746; 83540; 83550; 83735; 85025; 85027; 90732; 92523; 92610; 97110; 97112; 97116; 97163; 97166; 97530; 97535; J1650; J7030; J7050